=== PATIENT | male | born 1955 | race Caucasian/White ===

== ENCOUNTER 2023-01-23 06:54 | Outpatient (CLI) | payer BC, SELFPAY ==
--- NOTE | 2023-01-23 07:19 | ECG_ITS ---
Measurements Intervals [place] Rate: 57 P: 8 OK: 180 QRS: -19 QRSD: 102 T: 15 QT: 421 QTc: 411 Interpretive Statements SINUS BRADYCARDIA DELAYED PRECORDIAL R/S TRANSITION CONSIDER INFERIOR INFARCT, AGE INDETERMINATE BASELINE WANDER- V6 ABNORMAL ECG NO PREVIOUS ECG AVAILABLE FOR COMPARISON Electronically Signed On 01-23-2023 8:11:53 INSURANCE INSTRUCTOR by Amadou Blevins D.O.
[2023-01-23 08:05] LABS: Urine Cotinine NEGATIVE
== END 2023-01-23 06:55 | disposition home or self-care (01) ==
PROVIDERS: PCP Family Medicine Adolescent Medicine; Visit Provider Family Medicine Adolescent Medicine
DX: Z01.812 Encounter for preprocedural laboratory examination (principal); Z01.810 Encounter for preprocedural cardiovascular examination; M17.31 Unilateral post-traumatic osteoarthritis, right knee; I10 Essential (primary) hypertension; R00.1 Bradycardia, unspecified
CPT/HCPCS: 80307; 93005

== ENCOUNTER 2023-02-16 09:26 | Outpatient (CLI) | payer BC, SELFPAY ==
--- NOTE | 2023-02-16 | EST_ITS ---
Patient Info Name: William Prado Age: 67 years : 1955 Gender: Male Ht: 75 in Wt: 260 lbs BSA: 2.53 m2 HR: 59 bpm BP: 146 / 83 mmHg Heart Rhythm: Sinus Rhythm Exam Date: 02/16/2023 10:32 AM Exam Location: Echo Lab Patient Status: Outpatient Admit Date: 02/16/2023 Staff Ordering Physician: Ger Timmons MD Attending Provider: Ger Timmons MD Exercise Physician: Amadou Blevins DO Exam Type: CA stress agnes w NM Study Info Indications Z01.810 - Encounter for preprocedural cardiovascular examination R94.31 - Abnormal electrocardiogram ECG EKG A regadenoson stress test was performed. Summary 1. 1. Negative lexiscan stress test for ischemic ST changes by ECG criteria. 2. 2. Stable hemodynamics throughout the test. 3. 3. Nuclear scan to follow and will be reported separately. Please correlate with it. 4. 4. Patient informed of the above results. Protocol: Lexiscan Stress ECG Details Stage: REST Duration (min): 2 min : 7 sec HR (bpm): 58 SBP (mmHg): 146 DBP (mmHg): 83 Stage: REST Duration (min): 13 min : 23 sec HR (bpm): 58 SBP (mmHg): 146 DBP (mmHg): 83 Stage: STAGE 1 Duration (min): 0 min : 59 sec HR (bpm): 67 SBP (mmHg): 161 DBP (mmHg): 99 Stage: RECOVERY Duration (min): 1 min : 0 sec HR (bpm): 75 SBP (mmHg): 161 DBP (mmHg): 99 Stage: RECOVERY Duration (min): 2 min : 0 sec HR (bpm): 72 SBP (mmHg): 161 DBP (mmHg): 99 Stage: RECOVERY Duration (min): 3 min : 0 sec HR (bpm): 68 SBP (mmHg): 132 DBP (mmHg): 91 Stage: RECOVERY Duration (min): 3 min : 12 sec HR (bpm): 69 SBP (mmHg): 132 DBP (mmHg): 91 Rest HR: 58 bpm Peak HR: 81 bpm Rest Sys BP: 146 mmHg Peak Sys BP: 161 mmHg Max Pred HR: 153 bpm % Max Pred HR: 53 % Target HR: 130 bpm Max RPP: 13,041 bpm*mmHg Termination Reason: Completed protocol Cardiac Symptoms: Shortness of breath Total Time: 1 min : 0 sec Rest Holm BP: 83 mmHg Peak Holm BP: 99 mmHg Total Dose: 0.4 mg Resting ECG Sinus rhythm, delayed precordial R/S transition. Stress ECG No ST changes. Arrhythmias None. Report Signatures
--- NOTE | ~2023-02-16 | NM_ITS ---
EXAMINATION: NM agnes stress w perfusion DATE: 02/16/2023 11:28 INDICATION: Abnormal electrocardiogram. TECHNIQUE: Rest images were obtained following intravenous administration of 10.63 mCi Tc99m tetrofos min (Myoview). The patient was infused intravenously with Lexiscan (regadenoson). Then, 33.6 mCi Tc99 m tetrofosmin (Myoview) was administered intravenously, and supine and prone stress images were obtai holly. Data was reconstructed into short axis and horizontal and vertical long axis SPECT images. Gated SPECT images were also obtained. COMPARISON: None. FINDINGS: There is a small, mild, fixed perfusion defect involving left ventricular apex. No reversib le component to suggest ischemia. There is no segmental wall motion abnormality. Left ventricular e jection fraction measures 66%. IMPRESSION: 1. Small, mild infarct involving left ventricular apex. 2. Normal left ventricular ejection fraction measuring 66%. Reviewed, dictated and finalized at location A. YBACK CLERK
== END 2023-02-16 09:27 | disposition home or self-care (01) ==
PROVIDERS: PCP Family Medicine Adolescent Medicine; Visit Provider Family Medicine Adolescent Medicine
DX: M17.31 Unilateral post-traumatic osteoarthritis, right knee (principal); R94.31 Abnormal electrocardiogram [ECG] [EKG]
CPT/HCPCS: 78452; 93017; A9502; J2785

== ENCOUNTER 2023-04-12 12:10 | Outpatient (CLI) | payer BC, SELFPAY ==
[2023-04-12 13:25] LABS: Basophils Absolute Auto 0.1 K/mm3 (0.0-0.1); Basophils Percent Auto 0.8 % (0.2-1.2); Eosinophils Absolute Auto 0.4 K/mm3 (0-0.3); Eosinophils Percent Auto 6.7 % (0-4.4); Hematocrit 45.6 % (42.0-52.0); Hemoglobin 14.5 g/dL (14.0-18.0); Immature Granulocyte Absolute 0.01 K/mm3 (0.00-0.031); Immature Granulocyte Percent A 0.2 % (0-0.5); Lymphocytes Absolute Auto 2.52 K/mm3 (0.9-3.2); Lymphocytes Percent Auto 38.5 % (18.3-44.2); Mean Corpuscular HGB Conc 31.8 g/dl (32-36); Mean Corpuscular Hemoglobin 28.3 pg (26-34); Mean Corpuscular Volume 88.9 fl (80-100); Mean Platelet Volume 10.2 fl (7.4-10.4); Monocytes Absolute Auto 0.6 K/mm3 (0.1-0.6); Monocytes Percent Auto 8.9 % (2.6-8.5); Neutrophils Absolute Auto 2.9 K/mm3 (1.3-6.7); Neutrophils Percent Auto 44.9 % (45.5-73.1); Platelet Count Result 198 k/mm3 (150-375); Red Blood Count 5.13 M/mm3 (4.6-6.20); Red Cell Distribution Width 13.1 % (11.5-14.5); White Blood Count 6.5 K/mm3 (4.5-10.0)
[2023-04-12 13:34] LABS: Urine Cotinine NEGATIVE
[2023-04-12 13:39] LABS: Albumin Level 4.4 g/dL (3.5-5.1); Estimated Glomerular Filt Rate > 60; Glucose 82 mg/dL (65-110)
[2023-04-12 13:42] LABS: Hemoglobin A1C 5.9 % (<5.7)
[2023-04-12 14:43] LABS: MRSA (PCR) NOT DETECTED (NOT DETECTE)
== END 2023-04-12 12:11 | disposition home or self-care (01) ==
LOC: ANHSURGERY 12:13
PROVIDERS: PCP Family Medicine Adolescent Medicine; Visit Provider Orthopaedic Surgery
DX: Z01.818 Encounter for other preprocedural examination (principal); M17.31 Unilateral post-traumatic osteoarthritis, right knee
CPT/HCPCS: 80307; 82040; 82565; 82947; 83036; 85025; 87641

== ENCOUNTER 2023-05-04 00:06 | Day surgery (SDC) | payer BC, SELFPAY ==
[2023-04-12 12:24] VITALS: BMI 33.5
--- NOTE | 2023-04-12 12:42 | PC.NURSE ---
Report to the Outpatient Waiting Room, entrance under the green pavilion located off [facility], at time __0600 on date __05/04/23 . Planned Procedure Time: __30 . Time changes happen often and if your time is changed the preop area will call you the afternoon before. - You and your visitor will be asked to self-screen and do not enter if you have any COVID symptoms. - A mask is optional within the hospital at this time. Patients may have clear liquids (water, carbonated beverages, clear teas, apple juice) until 3 hours prior to surgery (4:30 AM )with a maximum of 20 ounces. - No food from midnight until time of surgery - Infants may have breast milk until 4 hours before surgery, infant formula 6 hours prior to surgery. - Children will be allowed to drink immediately following surgery. If applicable, please bring a bottle or sippy cup to assist with drinking. Juice, water, soda, and popsicles are readily available. For infants on formula, please bring formula the day of surgery. Pacifiers are allowed. Take the following medications with a SIP of water the morning of surgery: ___NONE DO NOT STOP ANY OF YOUR OTHER PRESCRIPTION MEDICATIONS PRIOR TO SURGERY ?EXCEPT THE FOLLOWING Medications to discontinue per physician ____PATIENT STATES __ALL VITAMINS AND SUPPLEMENTS _7 DAYS PRE OP PER DR MORELOS .LAST DOSE__04/26/23 MAY TAKE TYLENOL IF NEEDED FOR PAIN Please no make-up, nail latvian, hairspray, perfume, deodorant, or body powder the day of surgery. No jewelry (including any body piercings) or valuables the day of surgery, leave them at home. Please take a shower or bath the night before, or the morning of, surgery with an antibacterial soap. Wear comfortable, loose fitting clothing. Children are encouraged to wear pajamas. - Jewelry must be removed prior to entering the operating room. Rings and piercings that are not removed may be cut off. - The hospital will not accept responsibility for valuables. - Please leave all valuables, including medications, at home the day of surgery. If you are going home after surgery, a licensed regional truck driver must drive you home. - NO public transportation without another adult if you receive anesthesia. - We recommend that an adult stay with you for 24 hours following discharge. - We also recommend that you do not drive, make important decision, drink alcoholic beverages, or take any drugs that were not prescribed by your health care provider for at least 24 hours after your discharge time. Follow any additional instructions given to you from your surgeon. If you or anyone in your household have experienced Covid symptoms in the past week, please notify your surgeon or the nurse liaison at the phone number below for possible testing. VERBAL AND WRITTEN instructions given to ____PATIENT AND JENNIFER and asked if any additional questions and then verbalized understanding. Patient advised to call surgeon office or pre surgery nurse liaison [phone] if any additional questions.
[2023-04-12 12:57] VITALS: BP 162/78; PULSE 60; RESP 18; TEMP 37.2; O2SAT 97
--- NOTE | 2023-05-03 10:26 | WPDANESEPPF ---
Anes - Initial Pre Proc Eval Procedure: Operation Date: 05/04/23 07:30 Proposed Procedures p Right Total Knee Arthroplasty - Benito Power MD Date/Time: 05/03/23 10:26 Surgeon: Benito Power MD Pre Op Diagnosis: Prim O A Right Knee Patient Data Age: 67 Gender: M Height: 1.91 m Weight: 121.8 kg Last Vital Signs Temp 37.2 C 04/12/23 12:57 Pulse 60 04/12/23 12:57 Resp 18 04/12/23 12:57 BP 162/78 H 04/12/23 12:57 Pulse Ox 97 04/12/23 12:57 O2 Del Method Room Air 04/12/23 12:57 Allergies Allergy/AdvReac Type Severity Reaction Status Date / Time morphine Allergy Severe Nausea and Verified 04/12/23 12:19 Vomiting Sulfa (Sulfonamide Allergy Intermediate Nausea and Verified 04/12/23 11:35 Antibiotics) Vomiting povidone-iodine AdvReac Rash AND Verified 04/12/23 12:20 [From Betadine] ITCHING Home Medications Medication Instructions Recorded Confirmed Type acetaminophen 650 mg 650 mg PO PRN PRN Pain 05/07/21 04/12/23 History tablet,extended release (Arthritis Pain Relief (acetaminophen) ER) lactobacillus combo no.6 4 billion 4 cell PO DAILY 05/07/21 04/12/23 History cell tablet multivitamin 1 tablet PO DAILY 12/29/21 04/12/23 History vitamin B complex 1 cap PO DAILY 11/17/22 04/12/23 History lisinopril 40 mg tablet See Rx Instructions .Route 03/06/23 04/12/23 Rx .COMPLEX #90 tabs alpha lipoic acid 300 mg capsule 600 mg PO DAILY 04/12/23 04/12/23 History propranolol 60 mg capsule,24 60 mg PO HS 04/12/23 04/12/23 History hr,extended release simvastatin 20 mg tablet 20 mg PO HS 04/12/23 04/12/23 History aspirin 81 mg tablet,delayed 81 mg PO BID 14 days #28 tabs 05/04/23 Rx release oxycodone-acetaminophen 5 mg-325 1 - 2 tablet PO Q4-6H PRN pain #30 05/04/23 Rx mg tablet tabs Patient hx anesthesia problems: none Family hx anesthesia problems: none Results Review: All pre-operative results and documents have been reviewed as part of the pre-operative evaluation. [facility] Past Medical History Medical History (Updated 05/04/23 @ 07:14 by ISAAK Freitas) Asthma Essential (primary) hypertension Normal colonoscopy 12/29 PONV (postoperative nausea and vomiting) Pure hypercholesterolemia, unspecified Surgical History Surgical History (Updated 05/04/23 @ 07:14 by ISAAK Freitas) History of tonsillectomy Family History Family History Father Hypertension Mother Hypertension Bladder cancer Social History Social History (Updated 04/12/23 @ 11:16 by Enriqueta Mathis MA) Smoking packs per day: 0.25 Smoking cigarettes per day: 5.0 Years smoked: 10 Smoking pack-years: 2.50 Smoking status: Former smoker Tobacco type: cigarettes Second hand tobacco smoke exposure: No Smoking end date: 03/20/88 Additional smoking assessment comments: DENIES ANY FORM OF TOBACCO USE Alcohol intake: current Alcohol use details: 15 BEERS PER WK ONLY IN THE SUMMER Substance use type: does not use Do You Feel Safe in your Home?: Yes Lack of Transportation: No Lack of Food: Never True Current Housing: I Have Housing Concerned About Future Housing: No Difficulty Paying Gas/Electric Bills: No Difficulty Paying for Meds: No Currently Unemployed: No Education: High School Diploma/GED Difficulty w/ Childcare or Family Care: No Living arrangements: with family Occupation/Education: occupation Gender identity (if verbalized by the patient): Male Sexual Orientation (if Verbalized by the Patient): Straight or Heterosexual Spiritual care concerns: No Agree to blood products: Yes Anes - Eval Final PreProcedure Day of Procedure 05/03/23 10:26 Patient weight: obese Heart: regular rate and rhythm Lungs: clear to auscultation Airway: Mallampati scale class II Neurological: alert and oriented Last oral intake: >/= 8 hours A
[2023-05-04] VITALS (13 sets, daily range): BP systolic 122–170; BP diastolic 59–85; PULSE 54–67; RESP 10–20; TEMP 36.2–36.6; O2SAT 96–100
--- NOTE | ~2023-05-04 | XR_ITS ---
EXAMINATION: [id number] DATE: 05/04/2023 10:00 INDICATION: Total right knee arthroplasty. Postop. TECHNIQUE: 2 views of right knee were obtained. COMPARISON: Right knee radiographs 01/11/2023 FINDINGS: There is a total right knee arthroplasty with patellar resurfacing in near-anatomic alignme nt. No fracture. There is gas in the knee joint and soft tissues, consistent with recent surgery. IMPRESSION: 1. Total right knee arthroplasty in near-anatomic alignment. Reviewed, dictated and finalized at location A. MARKER
[2023-05-04] MEDS: LACTATED RINGERS 1,000 ML 30 ML IV CONT ×2 (06:30→09:45)
[2023-05-04] MEDS: ACETAMINOPHEN 500 MG TABLET 1000 MG PO ×3 (06:30→17:05)
[2023-05-04] MEDS: TRANEXAMIC ACID 1,000MG/ISO100 1,000 MG/100 ML BAG 200 MG IVPB (06:30)
--- NOTE | 2023-05-04 07:12 | WPDHPUPDATE1 ---
History and Physical Update Update Date/Time: 05/04/23 07:12 History and Physical has been reviewed, including an updated exam of the patient. There are NO changes in the patient's condition. Risks, benefits, and alternatives have been discussed and questions answered. Patient agrees to proceed with procedure.
--- NOTE | 2023-05-04 07:34 | WPDANESPNB ---
Anes - Peripheral Nerve Block Date/Time: 05/04/23 07:34 I have discussed with the patient/family/POA the placement of a peripheral nerve block for post-operative pain management, including associated risks, benefits, complications, and side effects. Alternative methods of post-operative analgesia were detailed. Questions were solicited and answers provided to the satisfaction of the patient/family/POA. Time-Out: A pre-procedural Time-Out was completed immediately before starting the procedure and confirmed: Patient Identification, Site, Procedure, Patient Position and the Availability of Requisite Equipment. Clinical Indications: Acute post-operative pain management requested by the operative surgeon. Nerve Block Insertion Note Anes-nerve block: adductor canal right Patient position: supine Skin prep: chlorhexidine Needle: 22 gauge, stimulating, insulated echogenic needle. Needle length: 80 mm Technique: ultrasound Injectate: bupivacaine 0.5% with epi 5 mcg/ml (30cc - no epi) Observations: tolerated well Complications: none Procedure start time:: 722 Procedure end time:: 725
[2023-05-04] MEDS: ceFAZolin 3 GM/D5W 100 ML 100 ML IVPB (07:45)
[2023-05-04] MEDS: SODIUM CHLORIDE 0.9% IV 38.7 ML, ROPivacaine HCL 1% 200 MG, KETOROLAC INJ (*BKC) 15 MG,... INFILTRATE (08:04)
[2023-05-04] MEDS: GENTAMICIN BONE CEMENT REFOBACIN 1 EACH TOPICAL (08:07)
--- NOTE | 2023-05-04 10:10 | SUR.PHASEI ---
1010: Simple mask removed.
[2023-05-04] MEDS: fentaNYL CITRATE INJ (*CRX) 100 MCG/2 ML VIAL 25 MCG IV PUSH ×3 (10:14→10:52)
--- NOTE | 2023-05-04 10:41 | W.PM.PROC2 ---
Procedure Note - Detailed Date of Procedure 05/04/23 Pre-op Diagnosis Prim O A Right Knee Post-op Diagnosis Same Procedure Performed Total knee arthroplasty, right. Surgeon Benito Power MD Family Living Educator Shyla Camargo PA-C Anesthesia General and Regional (subsartorial block) Findings Severe tricompartmental disease. Prior open meniscectomy and MCL repair. Minimal medial release. Description of Procedure The patient was brought to the operating room. A general anesthetic was administered. The leg was prepped and draped in the usual sterile fashion. The limb was elevated and the tourniquet inflated to 300 mmHg. A longitudinal incision was created along the medial border of the patella and patellar tendon, and a trivector approach to the knee was performed. A mild medial release was taken. The knee was then flexed. The osteophytes were carefully removed. The intramedullary guide was placed in the femoral canal. The distal femoral resection was then taken with the oscillating saw. The collateral ligaments were carefully protected. The tibia was carefully exposed. The jig was applied, and the proximal tibia was resected according to preoperative plan. The knee was balanced in extension. Appropriate releases were taken where needed. The anterior and posterior cruciate ligament and meniscal remnants were removed. The patella was measured. Patellar resection was carried out with the oscillating saw. The lug holes drilled. The femur was sized and rotation assessed using a combination of gap balancing, posterior referencing, and the AP axis. The 4 in 1 cutting block was used to finish the femoral cuts after equal gaps were assured. The osteophytes were carefully removed from the back of the knee. The knee was copiously irrigated with antibiotic solution periodically throughout the procedure. The meniscal remnants were removed. The spacer block was used to confirm equal flexion and extension gaps. No further releases were needed. The tibia was sized and broached. The bony surfaces were prepared for cementing with pulsatile lavage. The real tibia was cemented into position. The femur was press-fit. The patella was press-fit. Excess cement was carefully removed. Patellar tracking was carefully assessed. No additional releases were required. Dilute sterile Betadine soak performed for three minutes. Copious irrigation then performed. The wound was closed with #1 Vicryl suture, #2, 2-0, and 3-0 barbed suture, followed by Steri-Strips. A sterile bulky dressing was applied. Meticulous hemostasis was maintained throughout the procedure, and the bipolar cautery device was used. The pain relieving mixture was injected into the periarticular tissues during the procedure. There were no complications. The patient was extubated and brought to the recovery room in stable condition after the application of sterile dressing with Max bandage. Implants Oceen Triathlon knee system, low profile cemented tibia size 7, press-fit cruciate retaining femoral component size 7 ,and an 11 mm posterior stabilizing polyethylene insert. 35mm asymmetric metal backed tritanium patella component. Estimated Blood Loss 50 Drains No Pathology None sent Complications No immediate complications Condition Stable Disposition PACU [facility] Billing Surgery - Charge Forward: Surgery Billing
--- NOTE | 2023-05-04 11:57 | ADMGEN ---
This patient, William Prado, was admitted to 3 [facility] Surg Room 300-01. Patient/family oriented to hospital policies and general routines including ID bracelet, bed and alarms, visiting hours, pain management, procedures, bathroom and other care routines, personal items, smoking policy, room service/diet, and visiting hours. Information on how to activate the Rapid Response Team has been discussed. Patient/Family are encouraged to report perceived risks to care and to ask questions if they do not understand what they are told or what they should do.
[2023-05-04] MEDS: lisinopriL 20 MG TABLET 40 MG PO (12:07)
[2023-05-04] MEDS: oxyCODONE HCL (*CRX) 5 MG TAB IR PO ×2 (13:56→21:45)
[2023-05-04] MEDS: ceFAZolin 2 GM/D5W 50 ML 2 GM/50 ML BAG IVPB (17:04)
[2023-05-04] MEDS: MELOXICAM 7.5 MG TABLET PO (17:05)
[2023-05-04] MEDS: ASPIRIN 81 MG ENTERIC TABLET PO (17:05)
[2023-05-04] MEDS: SENNA/DOCUSATE SODIUM TABLET 2 TAB PO (17:05)
[2023-05-04] MEDS: oxyCODONE HCL (*CRX) 5 MG TAB IR 10 MG PO (17:44)
[2023-05-04] MEDS: SIMVASTATIN 20 MG TABLET PO (20:22)
[2023-05-04] MEDS: FAMOTIDINE 20 MG TABLET PO (20:22)
[2023-05-04] MEDS: PROPRANOLOL HCL 60 MG CAPSULE CR PO (20:22)
[2023-05-05 00:03] VITALS: BP 137/62; PULSE 60; RESP 12; TEMP 36.4; O2SAT 96
[2023-05-05] MEDS: ceFAZolin 2 GM/D5W 50 ML 2 GM/50 ML BAG IVPB ×2 (00:08→09:38)
[2023-05-05] MEDS: ACETAMINOPHEN 500 MG TABLET 1000 MG PO ×2 (00:08→05:45)
[2023-05-05] MEDS: oxyCODONE HCL (*CRX) 5 MG TAB IR 10 MG PO ×2 (01:49→05:45)
[2023-05-05 04:53] VITALS: BP 115/64; PULSE 55; RESP 13; TEMP 36.2; O2SAT 99
[2023-05-05 07:07] LABS: Basophils Percent Auto 0.3 % (0.2-1.2); Eosinophils Absolute Auto 0.1 K/mm3 (0-0.3); Eosinophils Percent Auto 0.5 % (0-4.4); Hematocrit 36.2 % (42.0-52.0); Hemoglobin 11.3 g/dL (14.0-18.0); Immature Granulocyte Absolute 0.04 K/mm3 (0.00-0.031); Immature Granulocyte Percent A 0.4 % (0-0.5); Immature Platelet Fraction Pct 5.5 % (0.9-11.2); Lymphocytes Absolute Auto 1.44 K/mm3 (0.9-3.2); Mean Corpuscular HGB Conc 31.2 g/dl (32-36); Mean Corpuscular Hemoglobin 27.9 pg (26-34); Mean Corpuscular Volume 89.4 fl (80-100); Mean Platelet Volume 10.9 fl (7.4-10.4); Monocytes Absolute Auto 1.5 K/mm3 (0.1-0.6); Monocytes Percent Auto 13.9 % (2.6-8.5); Neutrophils Percent Auto 71.9 % (45.5-73.1); Platelet Count Result 135 k/mm3 (150-375); Red Blood Count 4.05 M/mm3 (4.6-6.20); Red Cell Distribution Width 13.2 % (11.5-14.5); White Blood Count 11.1 K/mm3 (4.5-10.0)
[2023-05-05 07:18] LABS: Anion Gap 4 mmol/L (8-16); Blood Urea Nitrogen 13 mg/dL (9-20); Calcium 8.9 mg/dL (8.4-10.2); Carbon Dioxide 29 mmol/L (22-30); Chloride 103 mmol/L (98-107); Estimated CRCL calculation 109 ml/min; Estimated Glomerular Filt Rate > 60; Glucose 113 mg/dL (65-110); Potassium 4.8 mmol/L (3.4-5.0); Sodium 136 mmol/L (137-145)
--- NOTE | 2023-05-05 08:15 | PM.DS ---
DS: Admitting Diagnosis Discharge Date 05/05/23 Admitting Diagnosis OA knee Right DS: Discharge Diagnosis Discharge Diagnosis (1) Status post total right knee replacement: Code(s): Z96.651 - Presence of right artificial knee joint Status: Acute Assessment and Plan: Postop day 1: Right total knee arthroplasty. Patient tolerated procedure well. No complications. Pain manageable with pain medication. No numbness or tingling. We had a lengthy discussion regarding postoperative wound care, limitations, expectations, and exercises. Patient shows good understanding. He has had initial physical therapy and is tolerating it well. DVT prophylaxis: 81 mg baby aspirin b.i.d. for 14 days. Pain medication: Percocet. Patient has followup appointment with Dr. Power in 3 weeks. DS: Summary Hospital Course Reason for hospitalization: Total knee arthroplasty Hospital Course: Patient tolerated procedure well. Has had initial PT/OT. No complications. Pain well managed. Status at Discharge Functional status at discharge: uses cane/walker Overall status at discharge: patient is progressing back to baseline Time Spent with Patient Time attestation: Total time spent providing and/or coordinating discharge services: Exam Narrative: 67 y/o overweight Male. Resting comfortably in chair. No acute distress. A&O x3. Wearing compression socks bilaterally. Dressing intact.Half dollar sized bleeding on Mepilex. Mepilex dressing and a few steri strips changed. Moderate swelling. No ecchymosis. No erythema. No hematoma. Good early range of motion. Calf nontender. Neurologic status intact. No varicosities. Distal pulses palpable. Good quad function. DS: Data Data Completed and Pending Labs on day of discharge: Labs from last 24 hours 05/05/23 05:56 WBC 11.1 H RBC 4.05 L Hgb 11.3 L D Hct 36.2 L MCV 89.4 MCH 27.9 MCHC 31.2 L RDW 13.2 Plt Count 135 L MPV 10.9 H Immature Gran % (Auto) 0.4 Neut % (Auto) 71.9 Lymph % (Auto) 13.0 L [place] % (Auto) 13.9 H Eos % (Auto) 0.5 Baso % (Auto) 0.3 Lymph # (Auto) 1.44 [place] # (Auto) 1.5 H Eos # (Auto) 0.1 Baso # (Auto) 0.0 Abs Immat Gran (auto) 0.04 H Absolute Neuts (auto) 8.0 H Absolute Nucleated RBC 0.0 Nucleated RBC % 0.0 % Immature Plt Fraction 5.5 Sodium 136 L Potassium 4.8 Chloride 103 Carbon Dioxide 29 Anion Gap 4 L BUN 13 Creatinine 0.80 Estim Creat Clear Calc 109 Estimated GFR > 60 Glucose 113 H Calcium 8.9 Discharge Plan Discharge Patient Disposition: Home, Self-Care Discharge Instructions: See green instruction sheets Stand Alone Forms: General Discharge Instructions Follow-up/Referrals: Shyla Camargo PA [Physician Assistant Store Manager Trainee] - Discharge Medications: New aspirin 81 mg tablet,delayed release (DR/EC) 81 mg PO BID 14 Days Qty: 28 0RF oxycodone-acetaminophen 5-325 mg tablet 1 - 2 tablet PO Q4-6H MDD 6 PRN (Reason: pain) Qty: 30 0RF Continued acetaminophen [Arthritis Pain Relief (acetam)] 650 mg tablet extended release 650 mg PO PRN PRN (Reason: Pain) lactobacillus combo no.6 4 billion cell tablet 4 cell PO DAILY multivitamin Tablet 1 tablet PO DAILY vitamin B complex Capsule 1 cap PO DAILY alpha lipoic acid 300 mg capsule 600 mg PO DAILY propranolol 60 mg capsule,extended release 24 hr 60 mg PO HS simvastatin 20 mg tablet 20 mg PO HS lisinopril 40 mg tablet See Rx Instructions .ROUTE .COMPLEX Qty: 90 1RF Dose Instruction: Take 1 tablet by mouth daily. Rx Instructions: Take 1 tablet by mouth daily.
--- NOTE | 2023-05-05 08:20 | WPDANESPN ---
Anes - Prog Note Post-Op Date/Time: 05/05/23 08:20 Vital Signs: Last Vital Signs Temp 36.2 C L 05/05/23 04:53 Pulse 55 L 05/05/23 04:53 Resp 13 05/05/23 04:53 BP 115/64 05/05/23 04:53 Pulse Ox 99 05/05/23 04:53 O2 Del Method Room Air 05/04/23 18:04 O2 Flow Rate 8 05/04/23 10:00 Pain Score (VAS): 0 I/O: Intake & Output 05/04/23 05/05/23 05/05/23 23:59 07:59 15:59 Intake Total 290 50 Balance 290 50 Laboratory Tests 05/05/23 05:56 05/05/23 05:56 05/05/23 05:56 WBC 11.1 H RBC 4.05 L Hgb 11.3 L D Hct 36.2 L MCV 89.4 MCH 27.9 MCHC 31.2 L RDW 13.2 Plt Count 135 L MPV 10.9 H Immature Gran % (Auto) 0.4 Neut % (Auto) 71.9 Lymph % (Auto) 13.0 L Sunflower % (Auto) 13.9 H Eos % (Auto) 0.5 Baso % (Auto) 0.3 Lymph # (Auto) 1.44 Sunflower # (Auto) 1.5 H Eos # (Auto) 0.1 Baso # (Auto) 0.0 Abs Immat Gran (auto) 0.04 H Absolute Neuts (auto) 8.0 H Absolute Nucleated RBC 0.0 Nucleated RBC % 0.0 % Immature Plt Fraction 5.5 Sodium 136 L Potassium 4.8 Chloride 103 Carbon Dioxide 29 Anion Gap 4 L BUN 13 Creatinine 0.80 Estim Creat Clear Calc 109 Estimated GFR > 60 Glucose 113 H Calcium 8.9 Patient Feedback: Patient satisfied with anesthetic care.
[2023-05-05] MEDS: lisinopriL 20 MG TABLET 40 MG PO (09:38)
[2023-05-05] MEDS: polyethylene glycoL 3350 17 GM POWD.PACK PO (09:38)
[2023-05-05] MEDS: MELOXICAM 7.5 MG TABLET PO (09:38)
[2023-05-05] MEDS: predniSONE 5 MG TABLET PO (09:38)
[2023-05-05] MEDS: ASPIRIN 81 MG ENTERIC TABLET PO (09:38)
[2023-05-05] MEDS: FAMOTIDINE 20 MG TABLET PO (09:38)
[2023-05-05] MEDS: SENNA/DOCUSATE SODIUM TABLET 2 TAB PO (09:38)
[2023-05-05] MEDS: oxyCODONE HCL (*CRX) 5 MG TAB IR PO (10:22)
== END 2023-05-05 11:02 | disposition home or self-care (01) ==
LOC: ANHSURGERY 07:16 → ANH3MEDSUR 11:11
PROVIDERS: Physician Assistant Surgical; PCP Family Medicine Adolescent Medicine; Visit Provider Orthopaedic Surgery
PROC: (CPT 27447; principal; 2023-05-04 07:30)
DX: M17.31 Unilateral post-traumatic osteoarthritis, right knee (principal); G89.18 Other acute postprocedural pain
CPT/HCPCS: 27447; 64447; 36415; 73560; 80048; 85025; 85055; 86850; 86900; 86901; 97110; 97116; 97161; 97165; 97530; 97535; A9270; C1713; C1776; J0171; J0690; J1100; J1885; J2250; J2405; J2704; J2795; J3010; J7120; J7512

== ENCOUNTER 2023-06-23 07:18 | Outpatient (CLI) | payer BC, SELFPAY ==
--- NOTE | ~2023-06-23 | XR_ITS ---
XR knee RT 3V DATE: 06/23/2023 07:38 INDICATION: Right knee joint replacement TECHNIQUE: AP, lateral, sunrise views COMPARISON: 05/24/2023 right knee FINDINGS: Again there is postoperative change from total right knee arthroplasty with patellar resurf acing, without significant change since 05/24/2023. No fracture or dislocation or joint effusion, periosteal reaction or bone destruction is detected. IMPRESSION: Status post right total knee arthroplasty Reviewed, dictated and finalized at location B.
== END 2023-06-23 07:19 | disposition home or self-care (01) ==
PROVIDERS: PCP Family Medicine Adolescent Medicine; Visit Provider Physician Assistant Surgical
DX: Z96.651 Presence of right artificial knee joint (principal)
CPT/HCPCS: 73562

== ENCOUNTER 2023-07-10 08:00 | Outpatient (RCR) | payer BC, SELFPAY ==
--- NOTE | 2023-05-18 17:15 | OPREHPOC ---
Outpatient Therapy Plan of Care This is a Multidisciplinary Plan of Care that may contain components documented by all disciplines (PT, OT, and ST.) PT Problem 1 PT Problem #1 Knowledge Deficit PT Goal 1 Goal Pt to be IND with issued HEP Target Visit 16 PT Problem 2 PT Problem #2 Pain PT Goal 1 Goal Pt to report knee pain no greater than 3/10 in the last week. Target Visit 16 PT Goal 2 Goal Pt to report 75% improvement in overall symptoms. Target Visit 16 PT Problem 3 PT Problem #3 Impaired Range of Motion PT Goal 1 Goal Pt to improve active knee flexion to 110 deg Target Visit 16 PT Goal 2 Goal Pt to improve knee extension to lacking no more than 3 deg. Target Visit 16 PT Problem 4 PT Problem #4 Impaired Gait PT Goal 1 Goal Pt to ambulate on level surface without AD. Target Visit 16 PT Goal 2 Goal Pt to improve 2 min walk distance from 430ft to 500ft Target Visit 16 PT Problem 5 PT Problem #5 Impaired Functional Mobil PT Goal 1 Goal Pt to ascend/descend stairs with single UE support and a reciprocal pattern. Target Visit 16 PT Goal 2 Goal Pt to demonstrate a 30lb lift from ground level without compensations. Target Visit 16
--- NOTE | 2023-05-18 17:15 | PTOPEVAL1 ---
Assessment and note entered by Milagros Velasquez, PT, DPT Evaluation Information Assessment Status Evaluation Diagnosis R TKA Onset 05/04/23 Subjective Information Pt had a R TKA on 05/04/23. Pt reports so far sleep is really challenging d/t difficulty getting comfortable. He reports well controlled pain for the most part. He continues to ambulate with a wheeled walker. He states he needs to be able to do stairs, to work in the basement. He reports good compliance with his HEP and has been us walking around his home frequently. Pt and his like to walk and ride their bike. Reported Pain Level Pain Score 0: Self Report Assessment PT Clinical Summary William presents to therapy today for his initial evaluation following a R TKA on . Today he demonstrates decreased active knee ROM from -8 to 70 deg and passive ROM from -5 to 75 deg. He also demonstrates decreased quad engagement, requires a WW for ambulation, has present edema, and a decreased functional capacity compared to his baseline mobility. Skilled therapy services are indicated to address the deficits noted above, to manage pain, to improve gait, and to return to PLOF. Plan of Care Interventions Electrical Stimulation,Gait Training,Hot Pack/Cold Pack,Intermittent Compression,Manual Therapy, Neuro Re-education,Patient/Caregiver Educati, Therapeutic Activities,Therapeutic Exercise PT Services Indicated Yes Treatment Frequency and 2x/wk for 16 visits Duration These treatments will address the objective and functional deficits as defined above. The patient will be advanced safely and appropriately in order for the patient to progress towards his/her prior level of function. Additional exercises will be introduced and as well as a comprehensive home exercise program upon discharge, if needed, ?to ensure carryover of functional gains achieved in the clinic. This treatment plan has been reviewed and agreement upon by the patient.
--- NOTE | 2023-06-12 11:11 | PTOPPROGNS ---
Assessment and note entered by Milagros Velasquez, PT, DPT Evaluation Information Assessment Status Progress Diagnosis R TKA Onset 05/04/23 Subjective Information Pt states his knee is feeling pretty good today. He states overall he does not have a lot of complaints. He states if he sits for too long it will get stiff and swollen but this is manageable. He has progressed to not using his cane much in the last week or so. He states he still feels a little guarded when trying new things with his knee, he still feels uncertain on stairs, getting up from low surfaces, and trying to walk at a normal gait speed. Reports he was able to do some light yardwork this weekend. Assessment PT Clinical Summary William presents to therapy today for his progress report following 8 visits of skilled therapy to treat the deficits related to a R TKA on . Today he demonstrates improved active knee ROM from -4 to 110 and passive ROM from 0 to 115 deg. He is now ambulating without an AD and with minimal deviations, his stairs navigation has progressed, and his strength has improved. He demonstrates good strength grossly but would benefit from continued focus on functional strength and stability. Continuation of skilled therapy services are indicated to address the deficits noted above, to improve squat/lifting mechanics, and to return to PLOF. Plan of Care Interventions Electrical Stimulation,Gait Training,Hot Pack/Cold Pack,Intermittent Compression,Manual Therapy, Neuro Re-education,Patient/Caregiver Educati, Therapeutic Activities,Therapeutic Exercise PT Services Indicated Yes Treatment Frequency and 2x/wk for 16 visits, continue per POC Duration These treatments will address the objective and functional deficits as defined above. The patient will be advanced safely and appropriately in order for the patient to progress towards his/her prior level of function. Additional exercises will be introduced and as well as a comprehensive home exercise program upon discharge, if needed, ?to ensure carryover of functional gains achieved in the clinic. This treatment plan has been reviewed and agreement upon by the patient.
--- NOTE | 2023-07-10 08:42 | PTOPDC ---
Assessment and note entered by Milagros Velasquez, PT, DPT Evaluation Information Assessment Status Discharge Diagnosis R TKA Onset 05/04/23 Subjective Information Pt states his knee is doing great and he does not really have any problems with it. He states his swelling has gone down so it clicks more than he would like but he knows this is normal. He states his L knee hurts more than his R. Pt states he still feel unstable with for lunges but this is because of his other knee. He has been able to bike 5 miles and play pickleball. Reported Pain Level Pain Score 3,0: Self Report Assessment PT Clinical Summary William presents to therapy today for his progress report following 16 visits of skilled therapy to treat the deficits related to a R TKA on . Today he demonstrates improved active knee ROM from +2 to 120. He demonstrates a normal gait pattern on level ground without a device and can ambulate stairs without deviations. He has met all of this therapy goals and no longer requires skilled services. He will be discharged at this time.
== END 2023-07-10 15:35 | disposition home or self-care (01) ==
LOC: ANHGOSHPT 08:00
PROVIDERS: PCP Family Medicine Adolescent Medicine; Visit Provider Orthopaedic Surgery
DX: Z47.1 Aftercare following joint replacement surgery (principal); Z96.651 Presence of right artificial knee joint
CPT/HCPCS: 97016; 97110; 97116; 97161; 97530; 97750

== ENCOUNTER 2025-01-17 00:12 | Day surgery (SDC) | payer OTHER, SELFPAY ==
[2025-01-08 08:36] VITALS: BMI 32.5
[2025-01-17 08:12] VITALS: BP 170/86; PULSE 63; RESP 20; TEMP 36.6; O2SAT 100
--- NOTE | 2025-01-17 08:17 | WPDANESEPPF ---
Anes - Initial Pre Proc Eval Procedure: Operation Date: 01/17/25 09:30 Proposed Procedures p Screening Colonoscopy - Ediwn Johnson MD Date/Time: 01/17/25 08:17 Surgeon: Edwin Johnson MD Pre Op Diagnosis: fecal abnormalities/positive FIT test Patient Data Age: 69 Gender: M Height: 1.91 m Weight: 119.1 kg Last Vital Signs Temp 36.6 C 01/17/25 08:12 Pulse 63 01/17/25 08:12 Resp 20 01/17/25 08:12 BP 170/86 H 01/17/25 08:12 Pulse Ox 100 01/17/25 08:12 O2 Del Method Room Air 01/17/25 08:12 Allergies Allergy/AdvReac Type Severity Reaction Status Date / Time morphine Allergy Severe Nausea and Verified 01/17/25 08:11 Vomiting Sulfa (Sulfonamide Allergy Intermediate Nausea and Verified 01/17/25 08:11 Antibiotics) Vomiting povidone-iodine (From AdvReac Rash AND Verified 01/17/25 08:11 Betadine) ITCHING Home Medications ?Medication ?Instructions ?Recorded ?Confirmed ?Type lactobacillus combo no.6 4 billion 4 cell PO DAILY 05/07/21 01/17/25 History cell tablet multivitamin 1 tablet PO DAILY 12/29/21 01/17/25 History vitamin B complex 1 cap PO DAILY 11/17/22 01/17/25 History alpha lipoic acid 300 mg capsule 600 mg PO DAILY 04/12/23 01/17/25 History ibuprofen 600 mg tablet 600 mg PO BID PRN pain 05/17/24 01/08/25 History lisinopril 40 mg tablet 40 mg PO DAILY #90 tabs 01/08/25 01/17/25 Rx propranolol 60 mg capsule,24 60 mg PO HS #90 caps 01/08/25 01/17/25 Rx hr,extended release simvastatin 20 mg tablet 20 mg PO HS #90 tabs 01/08/25 01/17/25 Rx Patient hx anesthesia problems: none Family hx anesthesia problems: none Results Review: All pre-operative results and documents have been reviewed as part of the pre-operative evaluation. [facility] Past Medical History Medical History PONV (postoperative nausea and vomiting) Asthma Normal colonoscopy 12/29 Pure hypercholesterolemia, unspecified Essential (primary) hypertension Surgical History Surgical History History of total right knee replacement (04/2023) History of tonsillectomy Family History Family History Father Hypertension Mother Hypertension Bladder cancer Social History Social History Smoking packs per day: 0.25 Smoking cigarettes per day: 5.0 Years smoked: 10 Smoking pack-years: 2.50 Smoking status: Former smoker Second hand tobacco smoke exposure: No Additional smoking assessment comments: DENIES ANY FORM OF TOBACCO USE Alcohol intake: current Alcohol use details: 15 BEERS PER WK ONLY IN THE SUMMER Substance use type: does not use Do You Feel Safe in your Home?: Yes Lack of Transportation: No Lack of Food: Never True Current Housing: I Have Housing Concerned About Future Housing: No Difficulty Paying Gas/Electric Bills: No Difficulty Paying for Meds: No Currently Unemployed: No Education: High School Diploma/GED Difficulty w/ Childcare or Family Care: No Living arrangements: with family Occupation/Education: occupation Gender identity (if verbalized by the patient): Male Sexual Orientation (if Verbalized by the Patient): Straight or Heterosexual Spiritual care concerns: No Agree to blood products: Yes Anes - Eval Final PreProcedure Day of Procedure 01/17/25 08:17 Patient weight: obese Heart: regular rate and rhythm Lungs: clear to auscultation Airway: Mallampati scale class II Neurological: alert and oriented Last oral intake: >/= 8 hours ASA classification: III Emergent: no Anesthetic plan: proceed Anesthesia type and monitoring: general GIVS and standard monitoring Results Review: All pre-operative results and documents have been reviewed as part of the pre-operative evaluation. Informed Consent: The patient's anesthetic plan and its attendant risks and benefits were discussed with the patient/family/POA. Questions were solicited and answers provided to the satisfaction of the patient/family/POA.
[2025-01-17] MEDS: LACTATED RINGERS 1,000 ML 150 ML IV CONT (08:20)
--- NOTE | 2025-01-17 09:04 | PM.HPGS ---
History of Present Illness History of Present Illness Consent: Risks, benefits, and alternatives have been discussed and questions answered. Patient agrees to proceed with procedure. Chief complaint: fecal abnormalities/positive FIT test Narrative: William Prado is a 69 year old male with occult blood in stool, had colonoscopy over 15 years ago Review of Systems Review of Systems: All systems reviewed & are unremarkable except as noted in HPI and below PMFSH Past Medical History Medical History PONV (postoperative nausea and vomiting) Asthma Normal colonoscopy 12/29 Pure hypercholesterolemia, unspecified Essential (primary) hypertension Surgical History Surgical History History of total right knee replacement (04/2023) History of tonsillectomy Family History Family History Father Hypertension Mother Hypertension Bladder cancer Social History Social History Smoking packs per day: 0.25 Smoking cigarettes per day: 5.0 Years smoked: 10 Smoking pack-years: 2.50 Smoking status: Former smoker Second hand tobacco smoke exposure: No Additional smoking assessment comments: DENIES ANY FORM OF TOBACCO USE Alcohol intake: current Alcohol use details: 15 BEERS PER WK ONLY IN THE SUMMER Substance use type: does not use Do You Feel Safe in your Home?: Yes Lack of Transportation: No Lack of Food: Never True Current Housing: I Have Housing Concerned About Future Housing: No Difficulty Paying Gas/Electric Bills: No Difficulty Paying for Meds: No Currently Unemployed: No Education: High School Diploma/GED Difficulty w/ Childcare or Family Care: No Living arrangements: with family Occupation/Education: occupation Gender identity (if verbalized by the patient): Male Sexual Orientation (if Verbalized by the Patient): Straight or Heterosexual Spiritual care concerns: No Agree to blood products: Yes Meds Home Medications and Allergies Home Medications ?Medication ?Instructions ?Recorded ?Confirmed ?Type lactobacillus combo no.6 4 billion 4 cell PO DAILY 05/07/21 01/17/25 History cell tablet multivitamin 1 tablet PO DAILY 12/29/21 01/17/25 History vitamin B complex 1 cap PO DAILY 11/17/22 01/17/25 History alpha lipoic acid 300 mg capsule 600 mg PO DAILY 04/12/23 01/17/25 History ibuprofen 600 mg tablet 600 mg PO BID PRN pain 05/17/24 01/08/25 History lisinopril 40 mg tablet 40 mg PO DAILY #90 tabs 01/08/25 01/17/25 Rx propranolol 60 mg capsule,24 60 mg PO HS #90 caps 01/08/25 01/17/25 Rx hr,extended release simvastatin 20 mg tablet 20 mg PO HS #90 tabs 01/08/25 01/17/25 Rx Allergies Allergy/AdvReac Type Severity Reaction Status Date / Time morphine Allergy Severe Nausea and Verified 01/17/25 08:11 Vomiting Sulfa (Sulfonamide Allergy Intermediate Nausea and Verified 01/17/25 08:11 Antibiotics) Vomiting povidone-iodine (From AdvReac Rash AND Verified 01/17/25 08:11 Betadine) ITCHING Vital Signs Vital Signs - 24 hr 01/17/25 08:12 Temperature 98 F Pulse Rate 63 Respiratory Rate 20 Blood Pressure 170/86 H Pulse Oximetry 100 Oxygen Delivery Room Air Exam Const: General: comfortable and no acute distress HENMT: Face/Nose/Sinus: Normal nares present Eyes: General: appearance normal, both eyes and all related structures Neck: Neck: no JVD Resp: Auscultation: clear to auscultation bilaterally Cardio: Rate: regular rate Rhythm: regular rhythm GI: Inspection: non-distended GI Palp: Yes Soft to palpation Skin: General skin exam: normal color Extrem: General: normal to inspection Psych: Mental Status: mental status grossly normal Assessment and Plan Assessment and plan (1) Positive FIT (fecal immunochemical test): Code(s): R19.5 - Other fecal abnormalities Status: Acute Assessment and Plan: colonoscopy
--- NOTE | 2025-01-17 09:20 | S_PTH ---
PATIENT: William Prado LOC: [facility]#:[id number] AGE/SX: 69/M ROOM: RE01/17/[address]: Edwin Johnson MD : 1955 BED: DIS: 01/17/2025 SPEC #: [id number] RECD: 01/17/25 10:36 STATUS: MAXIMO REQ #: [id number] PHILL: 01/17/25 09:[address]: Edwin Johnson DEPT: [facility] Surgical RECD BY: Kenia Aleman ENTERED: 01/17/25 10:36 SP TYPE: Surgical OTHR DR: Ger Timmons MD Tissues: A - Colon Polypectomy Procedures: Hematoxylin and Eosin Stain Gross and Microscopic Level 4
[2025-01-17 09:25] VITALS: BP 118/71; PULSE 66; RESP 18; O2SAT 96
[2025-01-17 09:35] VITALS: BP 124/71; PULSE 67; RESP 16; O2SAT 96
[2025-01-17 09:45] VITALS: BP 129/80; PULSE 60; RESP 18; O2SAT 98
== END 2025-01-17 09:54 | disposition home or self-care (01) ==
PROVIDERS: PCP Family Medicine Adolescent Medicine; Referring Provider Family Medicine Adolescent Medicine; Visit Provider Internal Medicine Gastroenterology
PROC: 0DJD8ZZ Inspection of Lower Intestinal Tract, Via Natural or Artificial Opening Endoscopic (ICD-10-PCS; CPT 45378; principal; 2025-01-17 09:30)
DX: R19.5 Other fecal abnormalities (principal); D12.3 Benign neoplasm of transverse colon; K64.8 Other hemorrhoids; K57.30 Diverticulosis of large intestine without perforation or abscess without bleeding; I10 Essential (primary) hypertension; J45.909 Unspecified asthma, uncomplicated; E78.00 Pure hypercholesterolemia, unspecified; E66.9 Obesity, unspecified; Z68.32 Body mass index [BMI] 32.0-32.9, adult; Z79.1 Long term (current) use of non-steroidal anti-inflammatories (NSAID); Z98.890 Other specified postprocedural states; Z87.891 Personal history of nicotine dependence; Z80.52 Family history of malignant neoplasm of bladder
CPT/HCPCS: 45385; 88305; J2003; J2704; J7120